=== PATIENT | female | born 1950 ===

== ENCOUNTER 2018-03-22 09:37 | Emergency (ER) | payer MEDICARE ==
[2018-03-22 09:38] VITALS: BMI 20.7
[2018-03-22 09:52] VITALS: BP 163/84; PULSE 62; RESP 17; TEMP 97.8; O2SAT 99
[2018-03-22] MEDS ORDERED: Methocarbamol 500 MG Tab PO STA (10:46)
--- NOTE | 2018-03-22 10:46 | ED PDOC ---
Arrival/HPI - General Chief Complaint: Back Pain Time Seen by Provider: 03/22/18 10:32 Historian: Patient - History of Present Illness Narrative History of Present Illness (Text): 03/22/18 10:46 67 year old female, with past medical history of hypertension and diabetes, presents to the Emergency department complaining of lower back discomfort after trip and fall prior to arrival. Patient informs she was walking when she took a misstep and fell on her buttocks. Patient denied any head trauma or loss of consciousness. Patient was able to ambulate without difficulty after the fall but now complains of lower back discomfort with movement. Patient denies any dizziness/ lightheadedness or other trauma. Patient denies any fever, chills, nausea, vomiting, diarrhea, abdominal pain, chest pain, shortness of breath or any other complaints. Patient denies any surgical or social history. Time/Duration: Prior to Arrival Symptom Onset: Gradual Symptom Course: Unchanged Quality: Aching Activities at Onset: Other (Walking) Context: Walking Past Medical History - Provider Review Nursing Documentation Reviewed: Yes - Infectious Disease Hx of Infectious Diseases: None - Cardiac Hx Hypertension: Yes - Endocrine/Metabolic Hx Diabetes Mellitus Type 2: Yes - Psychiatric Hx Depression: No Hx Emotional Abuse: No Hx Physical Abuse: No Hx Substance Use: No - Surgical History Other/Comment: Left breast surgery - Suicidal Assessment Feels Threatened In Home Enviroment: No Family/Social History - Physician Review Nursing Documentation Reviewed: Yes Family/Social History: No Known Family HX Smoking Status: Never Smoked Hx Alcohol Use: No Hx Substance Use: No Hx Substance Use Treatment: No Allergies/Home Meds Allergies/Adverse Reactions: Allergies No Known Allergies Allergy (Verified 03/22/18 09:53) Home Medications: Home Meds Medication Instructions Recorded Confirmed Simvastatin [Zocor] 20 mg PO DAILY 04/26/12 03/22/18 Losartan Potassium 50 mg PO DAILY 03/22/18 03/22/18 Omeprazole 20 mg PO DAILY 03/22/18 03/22/18 metFORMIN [glucOPHAGE] 1 tab PO DAILY 03/22/18 03/22/18 Review of Systems - Physician Review All systems were reviewed & negative as marked: Yes - Review of Systems Constitutional: Normal. absent: Fevers Eyes: Normal ENT: Normal Respiratory: Normal. absent: SOB Cardiovascular: Normal. absent: Chest Pain Gastrointestinal: Normal. absent: Abdominal Pain, Diarrhea, Nausea, Vomiting Genitourinary Female: Normal Musculoskeletal: Back Pain (lower back discomfort s/p trip and fall) Skin: Normal Neurological: Normal. absent: Dizziness Endocrine: Normal Hemo/Lymphatic: Normal Psychiatric: Normal Physical Exam Vital Signs Reviewed: Yes Vital Signs Temp Pulse Resp BP Pulse Ox 03/22/18 09:50 97.8 F 62 17 163/84 H 99 Temperature: Afebrile Blood Pressure: Hypertensive Pulse: Regular Respiratory Rate: Normal Appearance: Positive for: Well-Appearing, Non-Toxic, Comfortable Pain Distress: None Mental Status: Positive for: Alert and Oriented X 3 - Systems Exam Head: Present: Atraumatic, Normocephalic Pupils: Present: PERRL Extroacular Muscles: Present: EOMI Conjunctiva: Present: Normal Neck: Present: Normal Range of Motion Respiratory/Chest: Present: Clear to Auscultation, Good Air Exchange. No: Respiratory Distress, Accessory Muscle Use Cardiovascular: Present: Regular Rate and Rhythm, Normal S1, S2. No: Murmurs Abdomen: No: Tenderness, Distention, Peritoneal Signs Back: Present: Normal Inspection Upper Extremity: Present: Normal Inspection. No: Cyanosis, Edema Lower Extremity: Present: Normal Inspection. No: Edema Neurological: Present: GCS=15, CN II-XII Intact, Speech Normal Skin: Present: Warm, Dry, Normal Color. No: Rashes Psychiatric: Present: Alert, Oriented x 3, Normal Insight, Normal Concentration Medical Decision Making ED Course and Treatment: 03/22/18 10:59 Impression: 67 year old female presents to the Emergency department for lower back discomfort s/p trip and fall. Plan: -- Motrin -- Robaxin -- X-ray of Lumbar Spine -- Reassess and disposition Progress Notes: 03/22/18 11:59 X-ray of Lumbar Spine reviewed by radiologist, shows: Unremarkable radiographs of the lumbar spine. - RAD Interpretation Radiology Orders: 03/22/18 10:45 LS SPINE AP/LAT [RAD] Stat Hand Hide Stretcher: Radiologist - Medication Orders Current Medication Orders: Discontinued Medications Ibuprofen (Motrin Tab) 800 mg PO STAT STA Stop: 03/22/18 10:47 Last Admin: 03/22/18 11:00 Dose: 800 mg Methocarbamol (Robaxin) 500 mg PO STAT STA Stop: 03/22/18 10:47 Last Admin: 03/22/18 11:00 Dose: 500 mg - Scribe Statement The provider has reviewed the documentation as recorded by the Scribe Noel Pierson. All medical record entries made by the Scribe were at my direction and personally dictated by me. I have reviewed the chart and agree that the record accurately reflects my personal performance of the history, physical exam, medical decision making, and the department course for this patient. I have also personally directed, reviewed, and agree with the discharge instructions and disposition. Disposition/Present on Arrival - Present on Arrival Any Indicators Present on Arrival: No History of DVT/PE: No History of Uncontrolled Diabetes: No Urinary Catheter: No History of Decub. Ulcer: No History Surgical Site Infection Following: None - Disposition Have Diagnosis and Disposition been Completed?: Yes Diagnosis: Lumbar strain Disposition: HOME/ ROUTINE Disposition Time: 12:30 Patient Plan: Discharge Condition: GOOD Discharge Instructions (ExitCare): Lumbar Muscle Strain (DC) Additional Instructions: Mrs Mckeon - Sorsteve this happened to you today. Return to us if problems. Follow up with your doctor. Cal[place]- Dr. Maynor Amezquita Referrals: Marcial Schroeder [Primary Care Provider] - Follow up with primary Forms: [employer] (Japanese)
--- NOTE | 2018-03-22 11:45 | RAD ---
PROCEDURE: Radiographs of the Lumbar Spine. HISTORY: fall COMPARISON: No prior. FINDINGS: BONES: Normal alignment. No listhesis. No fracture. DISC SPACES: Unremarkable. OTHER FINDINGS: None. IMPRESSION: Unremarkable radiographs of the lumbar spine.
== END 2018-03-22 12:56 | disposition home or self-care (01) ==
LOC: ED 09:37
DX: S39.012A Strain of muscle, fascia and tendon of lower back, initial encounter (principal); W01.0XXA Fall on same level from slipping, tripping and stumbling without subsequent striking against object, initial encounter; E11.9 Type 2 diabetes mellitus without complications; I10 Essential (primary) hypertension